=== PATIENT | female | born 1970 | race Two or more races ===

== ENCOUNTER 2018-04-04 09:54 | Emergency (ER) | payer SELFPAY ==
[~2018-04-04] VITALS: Ht 162.6 cm; Wt 54.4 kg
[2018-04-04] MEDS ORDERED: TETANUS-DIPTH-ACEL PERTUSSIS 0.5ML SYRG IM ONE (14:45)
[2018-04-04 14:52] VITALS: BP 109/79
== END 2018-04-04 14:51 | disposition home or self-care (01) ==
LOC: ER 09:54
DX: S61.255A Open bite of left ring finger without damage to nail, initial encounter (principal); Z90.89 Acquired absence of other organs; W53.11XA Bitten by rat, initial encounter; Y93.89 Activity, other specified; Y99.8 Other external cause status; Y92.89 Other specified places as the place of occurrence of the external cause
CPT/HCPCS: 90471; 90715